=== PATIENT | female | born 1965 | race Two or more races ===

== ENCOUNTER 2020-07-11 15:59 | Emergency (ER) | payer OTHER ==
[~2020-07-11] VITALS: Ht 152.4 cm; Wt 45.5 kg
[2020-07-11] MEDS ORDERED: AMOX500C2 PO (16:14)
[2020-07-11] MEDS ORDERED: CETI1SOL83 PO (16:14)
[2020-07-11] MEDS ORDERED: CHOL100018 PO (16:14)
[2020-07-11] MEDS ORDERED: AMLO2.5T96 PO (16:14)
[2020-07-11] MEDS ORDERED: IBUP-1506 PO (16:14)
[2020-07-11] MEDS ORDERED: TRIA15CR49 TP (16:14)
[2020-07-11] MEDS ORDERED: ALEN35TA41 PO (16:14)
[2020-07-11] MEDS ORDERED: MECL-169 PO (16:14)
[2020-07-11] MEDS ORDERED: LORA10TA7 PO (16:14)
[2020-07-11 17:41] LABS: BASOPHILS % (AUTO) 0.4 % (0.0-2.0); EOSINOPHILS % (AUTO) 1.1 % (1.0-6.0); HEMOGLOBIN 14.6 g/dL (12.0-16.0); LYMPHOCYTES # (AUTO) 1.8 K/uL (1.0-4.8); LYMPHOCYTES % (AUTO) 31.9 % (22.0-44.0); MEAN CORPUSCULAR HEMOGLOBIN 30.5 pg (26.0-34.0); MEAN CORPUSCULAR HGB CONC 33.1 G/dL (31.0-37.0); MEAN CORPUSCULAR VOLUME 92 fL (80-100); MONOCYTES # (AUTO) 0.3 K/uL (0.1-1.0); MONOCYTES % (AUTO) 5.5 % (2.0-9.0); NEUTROPHILS # (AUTO) 3.4 K/uL (1.8-7.7); NEUTROPHILS % (AUTO) 61.1 % (40.0-70.0); PLATELET COUNT (AUTO) 294 K/uL (150-450); RED BLOOD CELL COUNT(AUTO) 4.77 MIL/uL (4.00-5.20); RED CELL DISTRIBUTION WIDTH 13.1 % (11.5-14.5)
[2020-07-11 17:52] LABS: ANION GAP 7 mmol/L (8-16); CALCIUM, TOTAL 9.9 mg/dL (8.8-10.5); CARBON DIOXIDE 28 mmol/L (22-29); CHLORIDE 106 mmol/L (98-107); CREATININE 0.72 mg/dL (0.60-1.30); GLOMERULAR FILTR. RATE CALC > 60 mL/min (>60); GLUCOSE,RANDOM 102 mg/dL (70-110); POTASSIUM 3.7 mmol/L (3.5-5.1); SODIUM SERUM 141 mmol/L (136-145); UREA NITROGEN, BLOOD 13 mg/dL (7-18)
[2020-07-11 17:58] LABS: ALANINE AMINOTRANSFERASE 15 U/L (12-78); ALBUMIN 4.3 g/dL (3.4-5.0); ALKALINE PHOSPHATASE 49 U/L (46-116); ASPARTATE AMINOTRANSFERASE 15 U/L (15-37); BILIRUBIN,TOTAL 0.4 mg/dL (0.1-1.0); TOTAL PROTEIN, SERUM 8.1 g/dL (6.4-8.2)
[2020-07-11] MEDS ORDERED: MECLIZINE HCL 25 MG TABLET PO ONE (19:15)
[2020-07-11 20:09] LABS: APPEARANCE,URINE CLEAR (CLEAR); BILIRUBIN,URINE NEGATIVE (NEGATIVE); GLUCOSE, URINE (UA) NEGATIVE (NEGATIVE); KETONES,URINE NEGATIVE (NEGATIVE); LEUKOCYTE ESTERASE ,URINE NEGATIVE (NEGATIVE); NITRATE,URINE NEGATIVE (NEGATIVE); OCCULT BLOOD,URINE TRACE (NEGATIVE); PROTEIN,URINE NEGATIVE (NEGATIVE); UROBILINOGEN,URINE 0.2 mg/dL (<=1.0)
[2020-07-11 20:18] LABS: RBC,URINE 0-2 /HPF (0-2); WBC,URINE 0-2 /HPF (0-5)
[2020-07-11 20:19] LABS: BACTERIA,URINE None Seen /HPF (None Seen); SQUAMOUS EPITHELIAL CELL,UR Rare /LPF (None Seen)
[2020-07-11 20:32] VITALS: BP 135/93
== END 2020-07-11 20:43 | disposition home or self-care (01) ==
LOC: EMS 15:59
DX: R42 Dizziness and giddiness (principal); R11.0 Nausea; R51.9 Headache, unspecified
CPT/HCPCS: 70450; 93005

== ENCOUNTER 2024-02-01 13:21 | Emergency (ER) | payer OTHER ==
[~2024-02-01] VITALS: Ht 152.4 cm; Wt 54.5 kg
[~2024-02-01 13:21] MED LIST: ALEN35TA41 PO; AMLO2.5T96 PO; AMOX500C2 PO; CETI1SOL83 PO; CHOL25TA4 PO; IBUP-1506 PO; LORA10TA7 PO; MECL-169 PO; TRIA15CR49 TP
[2024-02-01 13:33] VITALS: TEMP 98.2
[2024-02-01] MEDS ORDERED: ALEN35TA53 PO (13:34)
[2024-02-01] MEDS ORDERED: MULT-1366 PO (13:34)
[2024-02-01] MEDS ORDERED: OS500 PO (13:34)
[2024-02-01] MEDS ORDERED: ATOR10TA69 PO (13:34)
[2024-02-01] MEDS ORDERED: ALLO100T PO (13:34)
[2024-02-01] MEDS ORDERED: AMLO2.5T29 PO (13:34)
[2024-02-01] MEDS ORDERED: CHOL100062 PO (13:34)
[2024-02-01] MEDS ORDERED: PANT40TA54 PO (13:34)
[2024-02-01 15:05] LABS: BASOPHILS % (AUTO) 0.4 % (0.0-2.0); EOSINOPHILS % (AUTO) 0.4 % (1.0-6.0); HEMATOCRIT 44.3 % (36-46); HEMOGLOBIN 14.8 g/dL (12.0-16.0); LYMPHOCYTES # (AUTO) 1.4 K/uL (1.0-4.8); LYMPHOCYTES % (AUTO) 16.6 % (22.0-44.0); MEAN CORPUSCULAR HEMOGLOBIN 30.6 pg (26.0-34.0); MEAN CORPUSCULAR HGB CONC 33.4 G/dL (31.0-37.0); MEAN CORPUSCULAR VOLUME 92 fL (80-100); MONOCYTES # (AUTO) 0.5 K/uL (0.1-1.0); MONOCYTES % (AUTO) 5.5 % (2.0-9.0); NEUTROPHILS # (AUTO) 6.7 K/uL (1.8-7.7); NEUTROPHILS % (AUTO) 77.1 % (40.0-70.0); PLATELET COUNT (AUTO) 366 K/uL (150-450); RED BLOOD CELL COUNT(AUTO) 4.83 MIL/uL (4.00-5.20); RED CELL DISTRIBUTION WIDTH 13.6 % (11.5-14.5); WHITE BLOOD COUNT (AUTO) 8.6 K/uL (4.5-11.0)
[2024-02-01 15:16] LABS: ANION GAP 10 mmol/L (8-16); CALCIUM, TOTAL 9.3 mg/dL (8.8-10.5); CARBON DIOXIDE 29 mmol/L (22-29); CHLORIDE 104 mmol/L (98-107); CREATININE 0.63 mg/dL (0.60-1.30); GLOMERULAR FILTR. RATE CALC > 60 mL/min (>60); GLUCOSE,RANDOM 105 mg/dL (70-110); POTASSIUM 4.1 mmol/L (3.5-5.1); SODIUM SERUM 143 mmol/L (136-145); UREA NITROGEN, BLOOD 8 mg/dL (7-18)
[2024-02-01 15:22] LABS: ALANINE AMINOTRANSFERASE 22 U/L (12-78); ALBUMIN 4.2 g/dL (3.4-5.0); ALKALINE PHOSPHATASE 87 U/L (46-116); ASPARTATE AMINOTRANSFERASE 22 U/L (15-37); BILIRUBIN,TOTAL 0.4 mg/dL (0.1-1.0); TOTAL PROTEIN, SERUM 8.8 g/dL (6.4-8.2)
[2024-02-01 15:47] LABS: TROPONIN I-HIGH SENSITIVITY Less Than 4 ng/L (<51)
[2024-02-01 19:10] VITALS: BP 148/78; PULSE 88; RESP 17
== END 2024-02-01 19:22 | disposition home or self-care (01) ==
LOC: EMS 13:21
DX: G47.00 Insomnia, unspecified (principal); F41.9 Anxiety disorder, unspecified; R00.2 Palpitations; R42 Dizziness and giddiness; I10 Essential (primary) hypertension
CPT/HCPCS: 71045; 80053; 84484; 85025; 93005; 99285; 36415-L1; 36415-TC

== ENCOUNTER 2024-06-24 14:21 | Emergency (ER) | payer OTHER ==
[~2024-06-24] VITALS: Ht 160 cm; Wt 63.6 kg
[~2024-06-24 14:21] MED LIST changes: -ALEN35TA41 PO; +ALEN35TA53 PO; +ALLO100T PO; +AMLO2.5T29 PO; -AMLO2.5T96 PO; -AMOX500C2 PO; +ATOR10TA69 PO; -CETI1SOL83 PO; +CHOL100062 PO; -CHOL25TA4 PO; -IBUP-1506 PO; -LORA10TA7 PO; -MECL-169 PO; +MULT-1366 PO; +OS500 PO; +PANT40TA54 PO; -TRIA15CR49 TP
[2024-06-24] MEDS ORDERED: FAMO20 PO (14:27)
[2024-06-24] MEDS ORDERED: FEXO-353 PO (14:27)
[2024-06-24] MEDS ORDERED: CELE200 PO (14:27)
[2024-06-24 14:33] VITALS: BP 158/100; PULSE 88; RESP 19; TEMP 97.6; O2SAT 99
[2024-06-24 15:51] LABS: BASOPHILS % (AUTO) 0.7 % (0.0-2.0); EOSINOPHILS % (AUTO) 2.3 % (1.0-6.0); HEMATOCRIT 41.6 % (36-46); HEMOGLOBIN 13.7 g/dL (12.0-16.0); LYMPHOCYTES # (AUTO) 1.1 K/uL (1.0-4.8); LYMPHOCYTES % (AUTO) 21.8 % (22.0-44.0); MEAN CORPUSCULAR HEMOGLOBIN 31.5 pg (26.0-34.0); MEAN CORPUSCULAR VOLUME 95 fL (80-100); MONOCYTES # (AUTO) 0.5 K/uL (0.1-1.0); MONOCYTES % (AUTO) 9.1 % (2.0-9.0); NEUTROPHILS # (AUTO) 3.4 K/uL (1.8-7.7); NEUTROPHILS % (AUTO) 66.1 % (40.0-70.0); PLATELET COUNT (AUTO) 317 K/uL (150-450); RED BLOOD CELL COUNT(AUTO) 4.36 MIL/uL (4.00-5.20); RED CELL DISTRIBUTION WIDTH 14.4 % (11.5-14.5); WHITE BLOOD COUNT (AUTO) 5.1 K/uL (4.5-11.0)
[2024-06-24 15:54] LABS: ANION GAP 9 mmol/L (8-16); CALCIUM, TOTAL 9.2 mg/dL (8.8-10.5); CARBON DIOXIDE 32 mmol/L (22-29); CHLORIDE 102 mmol/L (98-107); CREATININE 0.67 mg/dL (0.60-1.30); GLOMERULAR FILTR. RATE CALC > 60 mL/min (>60); GLUCOSE,RANDOM 128 mg/dL (70-110); POTASSIUM 4.2 mmol/L (3.5-5.1); SODIUM SERUM 143 mmol/L (136-145); UREA NITROGEN, BLOOD 10 mg/dL (7-18)
[2024-06-24 16:02] LABS: TROPONIN I-HIGH SENSITIVITY 5 ng/L (<51)
[2024-06-24 16:19] LABS: ALANINE AMINOTRANSFERASE 36 U/L (12-78); ALBUMIN 3.8 g/dL (3.4-5.0); ALKALINE PHOSPHATASE 73 U/L (46-116); ASPARTATE AMINOTRANSFERASE 24 U/L (15-37); BILIRUBIN,TOTAL 0.5 mg/dL (0.1-1.0); CREATINE KINASE, TOTAL ONLY 82 U/L (26-192); TOTAL PROTEIN, SERUM 7.5 g/dL (6.4-8.2)
[2024-06-24 16:39] LABS: APPEARANCE,URINE CLEAR (CLEAR); BILIRUBIN,URINE NEGATIVE (NEGATIVE); COLOR,URINE COLORLESS (YELLOW); GLUCOSE, URINE (UA) NEGATIVE (NEGATIVE); KETONES,URINE NEGATIVE (NEGATIVE); LEUKOCYTE ESTERASE ,URINE NEGATIVE (NEGATIVE); NITRATE,URINE NEGATIVE (NEGATIVE); OCCULT BLOOD,URINE TRACE (NEGATIVE); PROTEIN,URINE NEGATIVE (NEGATIVE); SPECIFIC GRAVITIY, URINE 1.004 (1.003-1.030); UROBILINOGEN,URINE <=1.0 mg/dL (<=1.0)
[2024-06-24] MEDS ORDERED: LORazepam 1 MG TABLET PO ONE (17:15)
[2024-06-24] MEDS ORDERED: KETOROLAC TROMETHAMINE 30 MG/ML VIAL IVP ONE (17:15)
[2024-06-24 17:18] LABS: BACTERIA,URINE None Seen /HPF (None Seen); RBC,URINE 0-2 /HPF (0-2); WBC,URINE None Seen /HPF (0-5)
[2024-06-24] MEDS: KETOROLAC TROMETHAMINE 30 MG/ML VIAL IM ONE (17:25)
[2024-06-24] MEDS: IBUPROFEN 400 MG TABLET PO ONE (17:28)
== END 2024-06-24 17:32 | disposition home or self-care (01) ==
LOC: EMS 14:22
DX: F41.9 Anxiety disorder, unspecified (principal); R42 Dizziness and giddiness; E78.00 Pure hypercholesterolemia, unspecified; I10 Essential (primary) hypertension
CPT/HCPCS: 70450; 71045; 80053; 81001; 82550; 84484; 85025; 93005; 99285; 36415-L1; 36415-TC

== ENCOUNTER 2025-04-26 19:00 | Emergency (ER) | payer OTHER ==
[~2025-04-26] VITALS: Ht 149.9 cm; Wt 45.5 kg
[~2025-04-26 19:00] MED LIST changes: +CELE200 PO; +FAMO20 PO; +FEXO-353 PO
[2025-04-26 19:41] VITALS: TEMP 97.8
[2025-04-26 19:58] LABS: PLATELET COUNT (AUTO) 326 K/uL (150-450); RED BLOOD CELL COUNT(AUTO) 4.26 MIL/uL (4.00-5.20); RED CELL DISTRIBUTION WIDTH 14.4 % (11.5-14.5); WHITE BLOOD COUNT (AUTO) 7.0 K/uL (4.5-11.0)
[2025-04-26 20:07] LABS: CALCIUM, TOTAL 8.4 mg/dL (8.8-10.5); CREATININE 0.73 mg/dL (0.60-1.30); GLOMERULAR FILTR. RATE CALC > 60 mL/min (>60); GLUCOSE,RANDOM 95 mg/dL (70-110); SODIUM SERUM 140 mmol/L (136-145); UREA NITROGEN, BLOOD 13 mg/dL (7-18)
[2025-04-26 20:14] LABS: ASPARTATE AMINOTRANSFERASE 23.0 U/L (15-37); CREATINE KINASE, TOTAL ONLY 213.0 U/L (26-192); TOTAL PROTEIN, SERUM 7.0 g/dL (6.4-8.2)
[2025-04-26] MEDS ORDERED: ONDANSETRON HCL 4 MG/2 ML VIAL IM ONE (20:15)
[2025-04-26 20:18] LABS: TROPONIN I-HIGH SENSITIVITY 4 ng/L (<51)
[2025-04-26] MEDS: ACETAMINOPHEN 500 MG TABLET PO ONE (20:23)
[2025-04-26] MEDS: MECLIZINE HCL 25 MG TABLET PO ONE (20:23)
[2025-04-26] MEDS: ONDANSETRON HCL 4 MG/2 ML VIAL IVP ONE (20:29)
[2025-04-26 21:54] VITALS: BP 131/79; PULSE 64; RESP 18; O2SAT 98
[2025-04-26 22:06] LABS: APPEARANCE,URINE CLEAR (CLEAR); GLUCOSE, URINE (UA) NEGATIVE (NEGATIVE); LEUKOCYTE ESTERASE ,URINE NEGATIVE (NEGATIVE); NITRATE,URINE NEGATIVE (NEGATIVE); OCCULT BLOOD,URINE SMALL (NEGATIVE); SPECIFIC GRAVITIY, URINE 1.007 (1.003-1.030)
[2025-04-26 22:34] LABS: SQUAMOUS EPITHELIAL CELL,UR Few /LPF (None Seen)
[2025-04-27] MEDS ORDERED: MECL-302 PO (05:24)
[2025-04-27] MEDS ORDERED: PHEN-846 PO (05:50)
== END 2025-04-27 06:12 | disposition home or self-care (01) ==
LOC: EMS 19:00
DX: I10 Essential (primary) hypertension (principal); R42 Dizziness and giddiness; E78.00 Pure hypercholesterolemia, unspecified; M10.9 Gout, unspecified; Z79.1 Long term (current) use of non-steroidal anti-inflammatories (NSAID); Z79.899 Other long term (current) drug therapy; Z98.890 Other specified postprocedural states
CPT/HCPCS: 99285; 96374; 71045; 80048; 80076; 81001; 82550; 83880; 84484; 85025; 85610; 85730; 36415; 93005; J2405